=== PATIENT | female | born 1960 | race Caucasian/White ===

== ENCOUNTER → 2017-01-27 | Outpatient (CLI) | payer OTHER ==
[2006-08-06 14:00] VITALS: TEMP 97.8
[~2017-01-27] MED LIST: CEFTIN500 MG PO; LORTAB 5/500 501 TAB PO; NAPROSYN500 MG PO; NEXIUM 20MG20 MG; NORCO 325 MG-51 TAB PO; WELLBUTRIN 75MG75 MG PO; WELLBUTRIN XL150 MG PO; ZOFRAN 4MG T4 MG/TAB PO; ZOFRAN ODT4 MG PO
== END ==
LOC: MC.RAD 12:59
DX: Z12.39 Encounter for other screening for malignant neoplasm of breast (principal)

== ENCOUNTER 2017-03-15 17:49 | Emergency (ER) | payer OTHER ==
[~2017-03-15] VITALS: Ht 170.2 cm; Wt 95.5 kg
[~2017-03-15 17:49] MED LIST changes: -CEFTIN500 MG PO; -NORCO 325 MG-51 TAB PO; -WELLBUTRIN XL150 MG PO; -ZOFRAN ODT4 MG PO
[2017-03-15 17:55] VITALS: BP 160/96; TEMP 97.7
[2017-03-15] MEDS ORDERED: WELLBUTRIN XL150 MG PO (17:58)
[2017-03-15 18:53] LABS: PH 5 (5-8); SQUAMOUS EPITHELIAL 0-2 /hpf; URINE APPEARANCE Clear; URINE BACTERIA Rare /hpf; URINE BILIRUBIN Negative (NEGATIVE); URINE BLOOD 2+ (NEGATIVE); URINE COLOR Yellow; URINE GLUCOSE Negative (NEGATIVE); URINE KETONE Negative (NEGATIVE); URINE RBC 20-50 /hpf; URINE UROBILINOGEN Negative (NEGATIVE)
[2017-03-15 19:33] LABS: BASO % 0.3 % (0.0-2.0); EOS # 0.1 (0.0-0.7); EOS % 0.8 % (0-4.0); GRAN # 4.3 (1.4-6.5); GRAN % 72.3 % (42.2-75.2); HEMATOCRIT 38.4 % (37.0-47.0); HEMOGLOBIN 13.4 g/dl (12.5-16.0); MEAN CELL VOLUME 90 fl (80.0-100.0); MEAN CORPUSCULAR HEMOGLOBIN 32 pg (27.0-31.0); MEAN CORPUSCULAR HGB CONC 35 g/dl (33.0-37.0); MEAN PLATELET VOLUME 10.5 fl (7.4-10.4); MONO # 0.6 (0.1-0.6); MONO % 10.4 % (1.7-9.3); PLATELET COUNT 236 K/mm3 (130-400); RED BLOOD COUNT 4.25 M/mm3 (4.10-5.30); REDCELL DISTRIBUTION WIDTH-CV 11.8 % (11.5-14.5)
[2017-03-15 20:26] LABS: CALCIUM 9.8 mg/dL (8.4-10.2); CREATININE, serum 0.98 mg/dL (0.52-1.25); POTASSIUM 4.2 mmol/L (3.4-5.0)
[2017-03-15] MEDS ORDERED: NORCO 325 MG-51 TAB PO (20:47)
[2017-03-15] MEDS ORDERED: ZOFRAN ODT4 MG PO (20:47)
[2017-03-15] MEDS ORDERED: CEFTIN500 MG PO (20:47)
[2017-03-15 21:21] VITALS: PULSE 75
== END 2017-03-15 21:21 | disposition home or self-care (01) ==
LOC: COL.ER 17:49
PROVIDERS: Emergency Medicine; Physician Assistant
DX: R10.32 Left lower quadrant pain (principal); N20.1 Calculus of ureter; N39.0 Urinary tract infection, site not specified
CPT/HCPCS: J0696; J1170; J1885; J2550; J7030

== ENCOUNTER 2021-08-19 13:49 | Emergency (ER) | payer OTHER ==
[~2021-08-19] VITALS: Ht 170.2 cm; Wt 106.8 kg
[~2021-08-19 13:49] MED LIST changes: +CEFTIN500 MG PO; +NORCO 325 MG-51 TAB PO; +WELLBUTRIN XL150 MG PO; +ZOFRAN ODT4 MG PO
[2021-08-19 14:32] LABS: BASO % 0.5 % (0.0-2.0); EOS % 0.7 % (0-4.0); GRAN # 3.3 K/mm3 (1.4-6.5); GRAN % 59.6 % (42.2-75.2); HEMATOCRIT 44.4 % (37.0-47.0); HEMOGLOBIN 15.2 g/dl (12.5-16.0); LYMPH # 1.6 K/mm3 (1.2-3.4); LYMPH % 29.4 % (20.0-51.0); MEAN CELL VOLUME 96 fl (80.0-100.0); MEAN CORPUSCULAR HEMOGLOBIN 33 pg (27.0-31.0); MEAN CORPUSCULAR HGB CONC 34 g/dl (33.0-37.0); MEAN PLATELET VOLUME 11.3 fl (7.4-10.4); MONO # 0.5 K/mm3 (0.1-0.6); MONO % 9.6 % (1.7-9.3); PLATELET COUNT 241 K/mm3 (130-400); RED BLOOD COUNT 4.64 M/mm3 (4.10-5.30); REDCELL DISTRIBUTION WIDTH-CV 11.5 % (11.5-14.5)
[2021-08-19 14:41] LABS: PROTHROMBIN TIME 11.4 SECONDS (9.7-12.8)
[2021-08-19 14:43] LABS: PARTIAL THROMBOPLASTIN TIME 31.1 SECONDS (26.0-37.0)
[2021-08-19 14:59] LABS: TROPONIN-I < 0.010 ng/mL (0.00-0.033)
[2021-08-19 15:05] LABS: ALANINE AMINOTRANSFERASE 48 U/L (0-55); ALBUMIN 4.6 gm/dL (3.4-4.8); ALKALINE PHOSPHATASE 88 U/L (40-150); ANION GAP 12 mmol/L (7-16); AST,SGOT 40 U/L (5-34); BILIRUBIN,TOTAL 0.7 mg/dL (0.2-1.2); BLOOD UREA NITROGEN 11 mg/dL (10-20); CARBON DIOXIDE 23 mmol/L (23-31); CHLORIDE 103 mmol/L (98-107); CREATININE, serum 0.94 mg/dL (0.57-1.11); GLUCOSE 118 mg/dL (70-99); MAGNESIUM 1.9 mg/dL (1.6-2.6); POTASSIUM 3.6 mmol/L (3.5-4.5); SODIUM 138 mmol/L (136-145); TOTAL PROTEIN 8.3 gm/dL (6.2-8.1)
[2021-08-19 15:56] VITALS: BP 155/93; PULSE 73; TEMP 97.8
== END 2021-08-19 16:00 | disposition home or self-care (01) ==
LOC: COL.ER 13:49
PROVIDERS: Family Medicine
DX: I49.3 Ventricular premature depolarization (principal); I10 Essential (primary) hypertension